=== PATIENT | male | born 1945 | race Caucasian/White ===

== ENCOUNTER → 2020-12-26 | Outpatient (CLI) | payer MEDICARE ==
[~2020-12-26] MED LIST: ASPIR 8181 MG PO; CELEXA20 MG PO; EXFORGE 5-1601 EACH PO; GLUCOPHAGE XR500 M1 PO; HYDROCHLOROTHIA25 MG PO; ISOSORBIDE MONO10 MG PO; K-DUR TAB 20 M20 MEQ PO; KLONOPIN1 MG PO; LEVAQUIN500 MG PO; LIPITOR TAB 2020 MG PO; LOPRESSOR50 MG PO; NITROSTAT0.4 MG SL; NORVASC 5 MG TAB5 MG PO; PLAVIX 75 MG TA75 MG PO; PROTONIX 40 MG40 M1 PO; TYLENOL ARTHRITIS PO; TYLENOL WITH C1 EACH PO; ZYLOPRIM 100 M100 MG PO
[2020-12-26 09:54] LABS: HEMOGLOBIN 16.6 gm/dl (14.0-17.5); RED BLOOD COUNT 4.83 M/UL (4.20-5.50); WHITE BLOOD COUNT 5.7 K/UL (4.5-11.0)
[2020-12-26 10:21] LABS: BUN/CREATININE RATIO 12 (0-10)
== END ==
LOC: LAB 09:33
PROVIDERS: Internal Medicine
DX: E11.9 Type 2 diabetes mellitus without complications (principal); N40.1 Benign prostatic hyperplasia with lower urinary tract symptoms
CPT/HCPCS: 36415; 80048; 80061; 80076; 83036; 84153; 84443; 85025

== ENCOUNTER → 2021-06-16 | Outpatient (CLI) | payer MEDICARE ==
[2021-06-16 09:35] LABS: HEMOGLOBIN 16.8 gm/dl (14.0-17.5); RED BLOOD COUNT 4.94 M/UL (4.20-5.50); WHITE BLOOD COUNT 7.4 K/UL (4.5-11.0)
[2021-06-16 11:02] LABS: BUN/CREATININE RATIO 16 (0-10)
== END ==
LOC: LAB 08:49
PROVIDERS: Internal Medicine
DX: E11.9 Type 2 diabetes mellitus without complications (principal)
CPT/HCPCS: 36415; 80048; 80061; 80076; 83036; 84443; 85025

== ENCOUNTER → 2021-09-21 | Outpatient (CLI) | payer MEDICARE | LOC: HEART 5 10:52 | DX: I50.22 Chronic systolic (congestive) heart failure (principal); I25.5 Ischemic cardiomyopathy; I27.20 Pulmonary hypertension, unspecified; I08.3 Combined rheumatic disorders of mitral, aortic and tricuspid valves; Z95.0 Presence of cardiac pacemaker | CPT/HCPCS: 93306 ==

== ENCOUNTER → 2021-11-16 | Outpatient (CLI) | payer MEDICARE | LOC: KOH-I 15:36 | DX: M50.322 Other cervical disc degeneration at C5-C6 level (principal); M47.812 Spondylosis without myelopathy or radiculopathy, cervical region; I65.23 Occlusion and stenosis of bilateral carotid arteries; M81.0 Age-related osteoporosis without current pathological fracture | CPT/HCPCS: 72040 ==

== ENCOUNTER → 2021-12-05 | Outpatient (CLI) | payer MEDICARE | LOC: KOH-I 09:53 | DX: M62.838 Other muscle spasm (principal); M50.321 Other cervical disc degeneration at C4-C5 level | CPT/HCPCS: 72125 ==

== ENCOUNTER → 2021-12-20 | Outpatient (CLI) | payer MEDICARE ==
[2021-12-20 10:06] LABS: HEMOGLOBIN 18.2 gm/dl (14.0-17.5); RED BLOOD COUNT 5.35 M/UL (4.20-5.50); WHITE BLOOD COUNT 7.5 K/UL (4.5-11.0)
[2021-12-20 10:35] LABS: BUN/CREATININE RATIO 13 (0-10)
== END ==
LOC: LAB 09:04
PROVIDERS: Internal Medicine
DX: E11.9 Type 2 diabetes mellitus without complications (principal); R97.20 Elevated prostate specific antigen [PSA]; R93.89 Abnormal findings on diagnostic imaging of other specified body structures
CPT/HCPCS: 36415; 80048; 80061; 80076; 83036; 84443; 85025

== ENCOUNTER → 2022-04-10 | Outpatient (CLI) | payer MEDICARE ==
[2022-04-10 12:45] LABS: HEMOGLOBIN 13.3 gm/dl (14.0-17.5); RED BLOOD COUNT 4.1 M/UL (4.20-5.50)
[2022-04-10 13:10] LABS: BUN/CREATININE RATIO 27 (0-10)
== END ==
LOC: LAB 12:23
PROVIDERS: Nurse Practitioner Family
DX: I50.9 Heart failure, unspecified (principal); R60.9 Edema, unspecified
CPT/HCPCS: 36415; 80048; 83735; 83880; 85025

== ENCOUNTER → 2022-04-11 | Outpatient (CLI) | payer MEDICARE | LOC: RAD 09:33 | DX: I50.9 Heart failure, unspecified (principal); R91.8 Other nonspecific abnormal finding of lung field | CPT/HCPCS: 71046 ==

== ENCOUNTER 2022-04-16 16:55 | Inpatient (IN) | payer MEDICARE ==
[~2022-04-16] VITALS: Ht 180.3 cm; Wt 72.6 kg
[~2022-04-16 16:55] MED LIST changes: -ALLOPURINOL300 MG PO; -AMLODIPINE BESY10 MG PO; -BUSPIRONE HCL5 MG PO; -DOXAZOSIN MESYLA4 MG PO; -ISOSORBIDE MONO30 MG PO; -LIPITOR TAB 1010 MG PO; -METFORMIN HCL1000 MG PO; -NITROSTAT0.4 MG SL; -POTASSIUM CHLO20 ME1 PO
[2022-04-17 03:24] LABS: HEMOGLOBIN 12.7 gm/dl (14.0-17.5); RED BLOOD COUNT 4.03 M/UL (4.20-5.50); WHITE BLOOD COUNT 12.6 K/UL (4.5-11.0)
[2022-04-17] MEDS ORDERED: ISOSORBIDE MONO30 MG PO (07:38)
[2022-04-17] MEDS ORDERED: NITROSTAT0.4 MG SL (07:39)
[2022-04-17] MEDS ORDERED: METFORMIN HCL1000 MG PO (08:04)
[2022-04-17] MEDS ORDERED: ALLOPURINOL300 MG PO (13:29)
[2022-04-17] MEDS ORDERED: LIPITOR TAB 1010 MG PO (13:30)
[2022-04-17] MEDS ORDERED: POTASSIUM CHLO20 ME1 PO (13:31)
[2022-04-17] MEDS ORDERED: DOXAZOSIN MESYLA4 MG PO (17:00)
[2022-04-17] MEDS ORDERED: BUSPIRONE HCL5 MG PO (17:01)
[2022-04-17] MEDS ORDERED: AMLODIPINE BESY10 MG PO (18:20)
[2022-04-18 04:03] LABS: HEMOGLOBIN 12.8 gm/dl (14.0-17.5); WHITE BLOOD COUNT 10.3 K/UL (4.5-11.0)
[2022-04-18 05:08] LABS: BUN/CREATININE RATIO 20 (0-10)
[2022-04-19 06:29] LABS: HEMOGLOBIN 12.2 gm/dl (14.0-17.5); RED BLOOD COUNT 3.84 M/UL (4.20-5.50); WHITE BLOOD COUNT 10.1 K/UL (4.5-11.0)
[2022-04-19 07:03] LABS: BUN/CREATININE RATIO 21 (0-10)
[2022-04-20 05:19] LABS: HEMOGLOBIN 11.8 gm/dl (14.0-17.5); RED BLOOD COUNT 3.67 M/UL (4.20-5.50); WHITE BLOOD COUNT 9.1 K/UL (4.5-11.0)
[2022-04-20 05:44] LABS: BUN/CREATININE RATIO 24 (0-10)
[2022-04-20] MEDS ORDERED: LEVOFLOXACIN500 MG PO (09:29)
== END 2022-04-20 13:56 | DRG 435 ==
LOC: MED SURG 4 17:44
PROVIDERS: ADMIT Internal Medicine
PROC: 0FB23ZX Excision of Left Lobe Liver, Percutaneous Approach, Diagnostic (ICD-10-PCS; principal; 2022-04-18)
PROC: BF45ZZZ Ultrasonography of Liver (ICD-10-PCS; 2022-04-18)
DX: C78.7 Secondary malignant neoplasm of liver and intrahepatic bile duct (principal); J18.9 Pneumonia, unspecified organism; C34.90 Malignant neoplasm of unspecified part of unspecified bronchus or lung; I50.22 Chronic systolic (congestive) heart failure; Z20.822 Contact with and (suspected) exposure to COVID-19; I65.29 Occlusion and stenosis of unspecified carotid artery; I25.5 Ischemic cardiomyopathy; I11.0 Hypertensive heart disease with heart failure; F41.9 Anxiety disorder, unspecified; D64.9 Anemia, unspecified; E87.6 Hypokalemia; I25.10 Atherosclerotic heart disease of native coronary artery without angina pectoris; Z95.810 Presence of automatic (implantable) cardiac defibrillator; Z88.8 Allergy status to other drugs, medicaments and biological substances; Z79.01 Long term (current) use of anticoagulants; Z79.82 Long term (current) use of aspirin; Z83.3 Family history of diabetes mellitus; Z82.49 Family history of ischemic heart disease and other diseases of the circulatory system; Z90.79 Acquired absence of other genital organ(s); Z90.49 Acquired absence of other specified parts of digestive tract; Z87.891 Personal history of nicotine dependence
CPT/HCPCS: 36415; 71275; 76942; 80048; 80076; 80202; 81001; 83735; 83880; 84132; 84439; 84443; 85025; 85027; 85610; 85730; 87040; 87086; 88341; 88342; 93005; 94640; 94664; 94760; J2185; J3370; J3475; J3480; J7070; Q9967

== ENCOUNTER → 2022-04-16 | Outpatient (CLI) | payer MEDICARE ==
[~2022-04-16] MED LIST changes: +ALLOPURINOL300 MG PO; +AMLODIPINE BESY10 MG PO; +BUSPIRONE HCL5 MG PO; +DOXAZOSIN MESYLA4 MG PO; -GLUCOPHAGE XR500 M1 PO; -ISOSORBIDE MONO10 MG PO; +ISOSORBIDE MONO30 MG PO; -K-DUR TAB 20 M20 MEQ PO; +LIPITOR TAB 1010 MG PO; -LIPITOR TAB 2020 MG PO; +METFORMIN HCL1000 MG PO; +POTASSIUM CHLO20 ME1 PO; -ZYLOPRIM 100 M100 MG PO
[2022-04-16 13:07] LABS: HEMOGLOBIN 13.4 gm/dl (14.0-17.5); RED BLOOD COUNT 4.22 M/UL (4.20-5.50); WHITE BLOOD COUNT 13.4 K/UL (4.5-11.0)
[2022-04-16 13:26] LABS: BUN/CREATININE RATIO 28 (0-10)
== END ==
LOC: LAB 12:26
PROVIDERS: Internal Medicine
DX: D64.9 Anemia, unspecified (principal); E87.6 Hypokalemia
CPT/HCPCS: 36415; 80048; 83735; 85025